=== PATIENT | female | born 1955 | race Caucasian/White ===

== ENCOUNTER 2018-09-19 11:40 | Emergency (ER) | payer OTHER ==
[~2018-09-19] VITALS: Ht 162.6 cm; Wt 70.0 kg
[2018-09-19 11:42] VITALS: BP 154/91
== END 2018-09-19 14:12 | disposition home or self-care (01) ==
LOC: ED 13:00
DX: S10.93XA Contusion of unspecified part of neck, initial encounter (principal); S09.8XXA Other specified injuries of head, initial encounter; W07.XXXA Fall from chair, initial encounter; Y93.89 Activity, other specified; Y92.69 Other specified industrial and construction area as the place of occurrence of the external cause; Y99.0 Civilian activity done for income or pay
CPT/HCPCS: 72125; 99284

== ENCOUNTER 2021-05-08 09:40 | Emergency (ER) | payer OTHER ==
[~2021-05-08] VITALS: Ht 162.6 cm; Wt 67.2 kg
[2021-05-08 09:49] VITALS: BP 112/71
== END 2021-05-08 10:17 | disposition home or self-care (01) ==
LOC: ED 10:11
DX: Z20.822 Contact with and (suspected) exposure to COVID-19 (principal); I25.2 Old myocardial infarction
CPT/HCPCS: 99283; U0003; U0005

== ENCOUNTER 2021-05-15 10:04 | Emergency (ER) | payer OTHER ==
[~2021-05-15] VITALS: Ht 162.6 cm; Wt 66.5 kg
[2021-05-15 10:20] VITALS: BP 148/67
== END 2021-05-15 10:31 | disposition home or self-care (01) ==
LOC: ED 10:20
DX: Z20.822 Contact with and (suspected) exposure to COVID-19 (principal); I25.2 Old myocardial infarction
CPT/HCPCS: 99283; U0003; U0005